=== PATIENT | male | born 1990 | race Caucasian/White ===

== ENCOUNTER 2023-04-30 22:50 | Emergency (ER) | payer SELFPAY ==
[~2023-04-30] VITALS: Ht 175.3 cm; Wt 80.0 kg
[2023-04-30 23:51] VITALS: BP 106/76; O2SAT 100
[2023-05-01] MEDS ORDERED: NAPROXEN 250MG TABLET PO ONE (01:15)
[2023-05-01] MEDS ORDERED: CYCL10TA21 MT (01:31)
[2023-05-01] MEDS ORDERED: NAPR-1176 MT (01:31)
[2023-05-01 01:50] VITALS: PULSE 60; RESP 16; TEMP 97.9
== END 2023-05-01 01:50 | disposition home or self-care (01) ==
LOC: ER 23:11
DX: S16.1XXA Strain of muscle, fascia and tendon at neck level, initial encounter (principal); V49.49XA Driver injured in collision with other motor vehicles in traffic accident, initial encounter; Y93.89 Activity, other specified; Y92.89 Other specified places as the place of occurrence of the external cause; Y99.8 Other external cause status
CPT/HCPCS: 99283